=== PATIENT | male | born 1985 | race Caucasian/White ===

== ENCOUNTER 2022-07-01 10:52 | Emergency (ER) | payer OTHER ==
[2022-07-01] MEDS ORDERED: Acetaminophen/HYDROcodone 325-5 MG Tab PO ONE (10:53)
[2022-07-01] MEDS ORDERED: Ondansetron 4 MG/2 ML SDV IVPUSH ONE (11:02)
[2022-07-01] MEDS ORDERED: fentaNYL 100 MCG/2 ML SDV IVPUSH ONE (11:03)
[2022-07-01] MEDS ORDERED: Diphtheria,Pertussis(Acell),Tetanus Vaccine 0.5 ML Syringe IM ONE (12:17)
[2022-07-01 13:07] LABS: CORONAVIRUS COVID-19 NAA NEGATIVE (NEGATIVE)
== END 2022-07-01 15:33 ==
LOC: FB.ED 10:52
DX: T20.26XA Burn of second degree of forehead and cheek, initial encounter (principal); Z20.822 Contact with and (suspected) exposure to COVID-19; Z23 Encounter for immunization; X11.8XXA Contact with other hot tap-water, initial encounter
CPT/HCPCS: 0241U; 16020; 90471; 90715; 96374; 96375; 99283; A9270; J2405; J3010